=== PATIENT | male | born 2005 | race Caucasian/White ===

== ENCOUNTER 2024-01-15 09:44 | Outpatient (CLI) | payer OTHER, SELFPAY ==
--- NOTE | 2024-01-15 10:36 | CA_ITS ---
APPROVED REPORT EXAM: Comprehensive 2D, Doppler, and color-flow Echocardiogram Contract Programmer: Shelly Huerta RT(R) Ht: 6 ft 1 in Wt: 180lbs BSA: 2.06 BP: 116/73 mmHg Indications: CP, abn EKG, dizziness, AVILEZ 2D Dimensions LVEF (Perez's) 51.40 % LV Volume 81.50 mL EF AP4 51.10 % EF AP2 51.7 % EF BP 51.4 % GL Strain -13.5 % M-Mode Dimensions RVDd 1.89 cm (0.9-2.6) LA Diam 2.01 cm (1.9-4.0) LVDd 3.92 cm (3.5-5.7) LVDs 2.93 cm (3.5-5.7) IVSd 0.93 cm (0.6-1.1) PWd 0.87 cm (0.6-1.1) EF (Teich) 50.50% FS 25.30% EDV (Teich) 66.70 mL TAPSE 1.62 (<1.7) ESV (Teich) 33.00 mL LV Diastology E Decel Time 170 (160-240 msec) E/A Ratio 0.99 Mitral Valve MV E Max Anthony. 57.0 (40-130 cm/s) MV A Velocity 58.0 (40-130 cm/s) E/A Ratio 0.99 MV PHT 50.0 ms Left Ventricle The left ventricle is normal size. There The left ventricular systolic function is normal. The left ventricular ejection fraction is within the normal range. There is normal left ventricular wall thickness. There is normal LV segmental wall motion. The left ventricular diastolic function is normal. LVEF is 50-55%. Right Ventricle The right ventricle is normal size. The right ventricular systolic function is normal. Atria The left atrium size is normal. The right atrium size is normal. There is no Doppler evidence of interatrial shunt. Aortic Valve The aortic valve opens well. There is no aortic valvular stenosis. No aortic regurgitation is present. Mitral Valve The mitral valve is normal in structure. No evidence of mitral valve stenosis. There is no mitral valve regurgitation noted. Tricuspid Valve The tricuspid valve leaflets are thin and pliable. Trace tricuspid regurgitation. There is insufficient TR jet to estimate RVSP. Pulmonic Valve The pulmonary valve is normal in structure. Trace pulmonic regurgitation. Great Vessels The aortic root is normal in size. The ascending aorta is not well-visualized. IVC is normal in size and collapses >50% with inspiration. Pericardium There is no pericardial effusion. Other Information Study Quality: Adequate Conclusion Normal biventricular systolic function. No significant valvular stenosis or regurgitation. Electronically signed by : Cecy Fabian MD 01/17/2024 13:33:51
--- NOTE | 2024-01-15 10:49 | CA_ITS ---
APPROVED REPORT Exam: Exercise Treadmill Technologist: Amy Helm Ht: 6 ft 1 in Wt: 181 lbs BSA: 2.06 m2 HR: 59 bpm BP: 111/60 mmHg Indications: Chest pain, dizziness Medical History Medications: Omeprazole,,,,, Stress Test Details Test: Jah HR Resting HR: 65 bpm Max Heart Rate (APMHR): 200 bpm Max HR Achieved: 169 bpm Target HR (85% APMHR): 170 bpm % of APMHR: 85 Recovery HR: 98 bpm HR response to stress: Normal HR response to stress BP Resting BP: 111.0/60.0 mmHg Max BP: 164.0/88.0 mmHg Recovery BP: 124.0/74.0 mmHg BP response to stress: Normal blood pressure response to stress. ECG Resting ECG: Sinus bradycardia, non-specific ST changes, First degree block Stress EC mm horizontal ST depression Arrhythmia: PVCs Clinical Exercise duration: 13:36 min Highest Stage Achieved: Exercise capacity: 14.8 METs Overall Exercise Capacity for Age: Good Stress ECG Conclusion Symptoms: Generalized fatigue Arrhythmias/Ectopy: PVC ST-T Changes: Baseline ST abnormalities. [address] depression at peak stress Conclusion: Good exercise capacity. Nondiagnostic ECG stress test due to baseline abnormalities (J-point elevation at baseline). Evaluation with alternative imaging modalities (e.g. CCTA) is suggested. Test Summary REST . . . . . . . Sitting REST 02:33 0.0 0.0 65 . 111/ 60 . . Stage 1 01:00 10.0 1.7 85 . . . . Stage 1 02:00 10.0 1.7 82 . . . . Stage 1 03:00 10.0 1.7 82 . 120/ 80 . . Stage 2 01:00 12.0 2.5 92 . . . . Stage 2 02:00 12.0 2.5 95 . . . . Stage 2 03:00 12.0 2.5 94 . 128/ 80 . . Stage 3 01:00 14.0 3.4 117 . . . . Stage 3 02:00 14.0 3.4 126 . . . . Stage 3 03:00 14.0 3.4 134 . 142/ 84 . . Stage 4 01:00 16.0 4.2 146 . . . . Stage 4 02:00 16.0 4.2 153 . . . . Stage 4 03:00 16.0 4.2 160 . 150/ 86 . . Stage 5 01:00 18.0 5.0 166 . . . . Stage 5 01:36 18.0 5.0 169 . . . Stop exercise at 13:36 RECOVERY 01:00 0.0 0.0 148 . 164/ 88 . . RECOVERY 02:00 0.0 0.0 129 . 164/ 88 . . RECOVERY 03:00 0.0 0.0 117 . 164/ 88 . . RECOVERY 04:00 0.0 0.0 108 . 164/ 88 . . RECOVERY 05:00 0.0 0.0 103 . 138/ 78 . . RECOVERY 06:00 0.0 0.0 100 . 128/ 76 . . RECOVERY 06:21 0.0 0.0 99 . 124/ 74 . . Electronically signed by : Cecy Fabian MD 01/17/2024 13:19:10
== END 2024-01-15 23:59 | disposition home or self-care (01) ==
PROVIDERS: Visit Provider Nurse Practitioner Family
DX: R42 Dizziness and giddiness (principal); R06.09 Other forms of dyspnea; R07.89 Other chest pain; R94.31 Abnormal electrocardiogram [ECG] [EKG]
CPT/HCPCS: 93017; 93018; 93306

== ENCOUNTER 2024-01-25 07:30 | Outpatient (CLI) | payer OTHER, SELFPAY ==
[2024-01-25 06:58] VITALS: BMI 23.8
--- NOTE | 2024-01-25 07:35 | CT_ITS ---
APPROVED REPORT Chain Pegger: CLINICAL INDICATION Chest Pain TECHNIQUE Image Acquisition: A 128 slice MDCT scanner ([employer] View) was used for data acquisition. A noncontrast coronary calcium scan was performed. A CT attenuation threshold of 130 Hounsfield units (HU) was used for the detection of calcium in contiguous voxels of 1 sq mm in area to be counted as individual lesions. Bolus tracking in the ascending aorta with a threshold of 180 HU was performed. Immediately afterwards, ECG synchronized cardiac CT was then performed from the cardiac base to apex using retrospective gating with ECG tube current modulation. A total of 85 mL of Isovue 370 mg/mL contrast medium was administered at 5 mL/sec followed by a saline flush using a biphasic injection protocol. A tube voltage of 120 KVp was used. The patient received the following medications prior to the cardiac CT. 0.8 mg of sublingual nitroglycerin The average heart rate at the time of acquisition was 57 bpm and regular. Image Reconstruction Transaxial images were reconstructed at 0.67 mm slide thickness. Data was reviewed interactively on an advanced workstation capable of 2 and 3-dimensional displays in all conventional reconstruction formats, including multiplanar reformations, maximum intensity projections, curved multiplanar reformations, and volume rendered reconstructions. When applicable, selected routine images describing the relevant coronary anatomy and pathology were saved and sent to PACS. Complications None Technical Quality Overall image quality was good. Coronary artery opacification was adequate. Total DLP (Dose-Length Product) is 1855.0 mGy-cm. The reported value represents the total of one or more individual components during the CT acquisition of this date and at this time, and as such, the same value may appear in more than one CT report depending on the interpreting/reporting physicians. COMPARISON None FINDINGS CT Coronary Calcium Scoring LMA (Left Main Artery) = 0 LAD (Left Anterior Descending) = 0 LCX (Left Coronary Circumflex) = 0 RCA (Right Coronary Artery) = 0 Total Calcium Score = 0 using the AJ-130 method. The interpretation of the calcium heart score is based on the following continuum*: 0 = no calcified plaque detected (risk of coronary artery disease is very low ??? less than 5%) 1-10 = calcium detected in extremely minimal levels (risk of coronary diseases is still low ??? less than 10%) 11-100 = mild levels of plaque detected with certainty (mild or minimal narrowing of heart arteries is likely) 101-400 = definite,at least moderate levels of plaque detected (relatively high risk of a heart attack within 3-5 years) >401-999 = extensive levels of plaque detected (high risk of heart attack, high levels of vascular disease are present, high likelihood of at least one significant coronary narrowing) *The calcium heart score quantifies the burden of coronary calcification/plaque in the coronary arteries. The calcium heart score is not able to evaluate the presence or burden of non-calcified (i.e. soft) plaque. There is no identifiable calcification in the aortic valve, mitral annulus or mitral valve, pericardium, or myocardium. Coronary CT Angiography The coronary arterial system is right dominant. Quantitative Stenosis Grading: Left Main (LM): The left main originates normally from the left sinus of Valsalva. The LM bifurcates into the left anterior descending artery and left circumflex artery. The LM is patent with no evidence of atherosclerosis. Left Anterior Descending (LAD) and Diagonal Branches: The LAD gives off 3 diagonal branch(es). The LAD and its branches are patent with no evidence of atherosclerosis. There is no evidence of LAD-myocardial bridge. Left Circumflex (LCX) and Obtuse Marginals (OM): The LCX gives off 2 Obtuse Marginal (OM) branch(es). The LCX and its branches are patent with no evidence of atherosclerosis. Right Coronary Artery (RCA): The RCA originates normally from the right sinus of Valsalva. The RCA gives off a posterior descending artery (PDA) and posterolateral (PL) branches. The RCA and its branches are patent with no evidence of atherosclerosis. Non-Coronary Cardiac Findings: Analysis of the left ventricular (LV) structure and function was performed after 3-D reconstruction of the LV from axial images, with user-corrected automatic contouring for assessment of LV volumes and user-defined reconstruction from oblique planes for measurement of 3-D cardiac structure and function. -The left ventricle systolic function is normal. -There is no left atrial appendage filling defect. Two right pulmonary veins and two left pulmonary veins drain normally into the left atrium. -No pericardial thickening or calcification. -Central and branch pulmonary arteries in the [id number] are unremarkable. -Thoracic aorta within the visualized thoracic aortic-branches in the [id number] is unremarkable. Extracardiac Structures No significant extra-cardiac findings. Note, however, that this study is focused on the cardiac findings. IMPRESSION -No coronary calcification with an Agatston score = 0 using the AJ-130 method. -No evidence of significant flow-limiting atherosclerosis of the coronary arteries. -No evidence of coronary anomalies or myocardial bridge. -CAD-RADS 0. Management recommendations per ACC/AHA guidelines*, as clinically appropriate. *Recommendations: CAD RADS 0: Reassurance. Consider non-atherosclerotic causes of chest pain. CAD RADS 1: Consider non-atherosclerotic causes of chest pain. Consider preventive therapy and risk factor modification. CAD RADS 2: Consider non-atherosclerotic causes of chest pain. Consider preventive therapy and risk factor modification, particularly for patients with nonobstructive plaque in multiple segments. CAD RADS 3: Consider further functional testing. Consider symptom-guided anti-ischemic and preventive pharmacotherapy as well as risk factor modification per published guideline statements. CAD RADS 4A: Consider further functional testing or invasive coronary angiography with revascularization per published guideline statements. Consider symptom-guided anti-ischemic and preventive pharmacotherapy as well as risk factor modification per published guideline statements. CAD RADS 4B: Invasive coronary angiography recommended with revascularization per published guideline statements. Consider symptom-guided anti-ischemic and preventive pharmacotherapy as well as risk factor modification per published guideline statements. CAD RADS 5: Consider invasive angiography and/or viability assessment with revascularization per published guideline statements. Consider symptom-guided anti-ischemic and preventive pharmacotherapy as well as risk factor modification per published guideline statements. CRITICAL RESULT None COMMUNICATION Per this written report The coronary and cardiac findings of this CCTA were reviewed, reported, and signed by Alex Fabian MD ([employer]eral Limousine Driver) Conclusion Electronically signed by : Cecy Fabian MD 01/28/2024 12:16:56
[2024-01-25 08:10] VITALS: BP 116/54; PULSE 58; RESP 18; TEMP 36.9; O2SAT 99
[2024-01-25 08:36] LABS: Chloride 105 mmol/L (98-107); Sodium 138 mmol/L (136-145)
[2024-01-25 08:39] LABS: Blood Urea Nitrogen 16 mg/dl (9-20); Creatinine Clearance Estimated 104 mL/min (50-200); Estimated Glomerular Filt Rate 70 ml/min (>60); GFR (African American) 84 ML/MIN (>60)
[2024-01-25 08:40] LABS: Calcium 9.1 mg/dl (8.4-10.2); Carbon Dioxide 25 mmol/L (22.0-30.0); Glucose 98 mg/dl (74-100)
[2024-01-25 08:54] VITALS: BP 121/70; PULSE 51; O2SAT 100
[2024-01-25] MEDS: NITROGLYCERIN 0.4MG SL TABLET 0.8 MG SL (08:55)
[2024-01-25 08:56] VITALS: BP 103/61; PULSE 60; O2SAT 100
[2024-01-25 08:58] VITALS: BP 96/51; PULSE 63; O2SAT 100
[2024-01-25 09:00] VITALS: BP 106/44; PULSE 57; O2SAT 100
[2024-01-25] MEDS: SODIUM CHLORIDE 0.9% 10ML SYR (RAD ONLY) 10 ML IV (09:08)
[2024-01-25] MEDS: IOPAMIDOL-370 (76%);100ML BOTTLE 85 ML IV (09:08)
[2024-01-25] MEDS: 0.9 % SODIUM CHLORIDE 50 ML VIAL IV (09:08)
== END 2024-01-25 09:05 | disposition home or self-care (01) ==
PROVIDERS: PCP Nurse Practitioner Family; Visit Provider Nurse Practitioner Family
DX: R07.89 Other chest pain (principal); R94.31 Abnormal electrocardiogram [ECG] [EKG]
CPT/HCPCS: 75574; 80048; Q9967